=== PATIENT | male | born 1950 | race Caucasian/White ===

== ENCOUNTER 2023-09-19 10:42 | Emergency (ER) | payer BC, SELFPAY ==
[2023-09-19 10:46] VITALS: BP 148/81
--- NOTE | 2023-09-19 11:17 | ED.GENMED ---
History of Present Illness
<DARIA Fraire - Last Filed: 09/20/23 07:24>
General
Chief Complaint: Breathing Problem
Source: patient
Exam Limitations: none
Time Seen by Provider: 09/19/23 11:09
Nursing documentation reviewed up to this point in time: agreed with
Travel History
Have you had any contact with someone who has COVID-19?: No
Do you have any symptoms of coronavirus? Fever > 100 degrees, chills, cough, shortness of breath, sore throat, loss of taste or smell, muscle aches, or headache?: No
History of Present Illness
History of Present Illness:
73-year-old male presents today for evaluation. Patient reports he was diagnosed with COVID in July but since then has had progressive worsening cough. He has been to urgent care last week and was given steroids and an inhaler. He completed
that. He complains of worsening cough, wheezing. He does feel slightly short of breath with talking. He also complains of swelling to his glands which she has noticed for the past several days . He reports that he wakes up in the morning with
swelling of his glands under his neck but today reports he noticed swelling to bilateral facial glands .
He denies any associated fever chills nausea vomiting.
Past History
<DARIA Fraire - Last Filed: 09/20/23 07:24>
Past History
ED Past Medical History: Other (Hypertension, borderline hyperlipidemia)
Social History
Tobacco: Non-smoker
Alcohol: Daily
Family History
Family History: Other (father with atrial fibrillation)
Review of Systems
<DARIA Fraire - Last Filed: 09/20/23 07:24>
Review of Systems
Allergies reviewed?: Yes
All Other Systems: ROS reviewed and negative except as documented in HPI and ROS
Constitutional: Reports no symptoms; Denies fever, fatigue or chills
EENT: Reports no symptoms
Respiratory: Reports cough and trouble breathing
Cardiac: Reports no symptoms
ABD/GI: Reports no symptoms
: Reports no symptoms
Musculoskeletal: Reports no symptoms
Skin: Reports no symptoms
Neurological: Reports no symptoms
Psychiatric: Reports no symptoms
Phy Exam
<DARIA Fraire - Last Filed: 09/20/23 07:24>
General Physical Exam
General Presentation: no apparent distress
General age: appears stated age
General Skin: warm and dry
General Habitus: normal
General Mental: alert
General Hydration: appears well hydrated
Cardiovascular Exam
Cardiovascular Exam: regular rate/rhythm, no murmur and normal peripheral pulses
Pulmonary Exam
Pulmonary Exam: no respiratory distress and other (+ wheezing b/l ; crackles left base )
Neurological Exam
Neurological Exam: alert and oriented x3
Musculoskeletal Exam
Musculoskeletal Exam: full ROM
Skin Exam
Skin Exam: normal color and warm/dry
Psychiatric Exam
Psychiatric Exam: normal mood/affect
Scores
<DARIA Fraire - Last Filed: 09/20/23 07:24>
Heart Failure Risk
Heart Failure Risk Score: Not Applicable
Course
<DARIA Fraire - Last Filed: 09/20/23 07:24>
Orders/Labs/Results
Orders:
Orders
09/19/23 11:30
Cardiac Monitoring- Treatment ONCE
IV Insert/Care/Rem.- Treatment PRN
0.9% Sodium Chloride 1000 ml [Nss] 1,000 ml IV BOLUS
Albuterol Sulfate [Ventolin Nebules] 7.5 mg INH R NOW STA
Ipratropium Nebs [Atrovent Nebules] 1 mg INH R NOW STA
09/19/23 11:32
Dexamethasone Sod Phosphate [Decadron] 10 mg IV NOW STA
09/19/23 11:52
Complete Blood Count/With Diff Urgent
Comprehensive Metabolic Panel Urgent
09/19/23 13:50
CT Chest Pe Study Urgent
Comment:
Reason For Exam: sob
09/19/23 13:51
CT Neck With Iv Contrast Urgent
Comment:
Reason For Exam: anterior neck swelling
Abnormal Lab Results
09/19/23
11:52
WBC 12.4 H 10^3/uL
(4.8-10.8)
RBC 4.31 L 10^6/uL
(4.70-6.10)
MCH 32.3 H pg
(27.0-31.0)
Abs Immat Gran (auto) 0.4 H 10^3/uL
(0-0.05)
Absolute Neuts (auto) 8.6 H 10^3/uL
(1.4-6.5)
Absolute Monos (auto) 1.3 H 10^3/uL
(0.1-0.6)
Immature Gran % 3.4 H %
(0-0.5)
Lymphocytes % 16.4 L %
(20.5-51.1)
Monocytes % 10.3 H %
(1.7-9.3)
BUN 34 H mg/dl
(9-20)
Creatinine 1.4 H mg/dL
(0.7-1.3)
09/19/23 11:52
09/19/23 11:52
Vital Signs
Initial and Last Documented VS:
Initial Vital Signs
Temp Pulse Resp BP Pulse Ox
98.2 F 90 16 148/81 97
09/19/23 10:46 09/19/23 10:46 09/19/23 10:46 09/19/23 10:46 09/19/23 10:46
Last Documented Vital Signs
Temp Pulse Resp BP Pulse Ox
98.1 F 80 16 124/66 94
09/19/23 16:33 09/19/23 16:33 09/19/23 16:33 09/19/23 16:33 09/19/23 16:33
Communications Engineering Technician consulted with Physician
Communications Engineering Technician consulted with physician?: Yes
Name of Physician Consulted: Lesley
<Dayo Sutton, DO - Last Filed: 09/19/23 15:25>
Orders/Labs/Results
Orders:
Orders
09/19/23 11:30
Cardiac Monitoring- Treatment ONCE
IV Insert/Care/Rem.- Treatment PRN
0.9% Sodium Chloride 1000 ml [Nss] 1,000 ml IV BOLUS
Albuterol Sulfate [Ventolin Nebules] 7.5 mg INH R NOW STA
Ipratropium Nebs [Atrovent Nebules] 1 mg INH R NOW STA
09/19/23 11:32
Dexamethasone Sod Phosphate [Decadron] 10 mg IV NOW STA
09/19/23 11:52
Complete Blood Count/With Diff Urgent
Comprehensive Metabolic Panel Urgent
09/19/23 13:50
CT Chest Pe Study Urgent
Comment:
Reason For Exam: sob
09/19/23 13:51
CT Neck With Iv Contrast Urgent
Comment:
Reason For Exam: anterior neck swelling
Abnormal Lab Results
09/19/23
11:52
WBC 12.4 H 10^3/uL
(4.8-10.8)
RBC 4.31 L 10^6/uL
(4.70-6.10)
MCH 32.3 H pg
(27.0-31.0)
Abs Immat Gran (auto) 0.4 H 10^3/uL
(0-0.05)
Absolute Neuts (auto) 8.6 H 10^3/uL
(1.4-6.5)
Absolute Monos (auto) 1.3 H 10^3/uL
(0.1-0.6)
Immature Gran % 3.4 H %
(0-0.5)
Lymphocytes % 16.4 L %
(20.5-51.1)
Monocytes % 10.3 H %
(1.7-9.3)
BUN 34 H mg/dl
(9-20)
Creatinine 1.4 H mg/dL
(0.7-1.3)
09/19/23 11:52
09/19/23 11:52
Vital Signs
Initial and Last Documented VS:
Initial Vital Signs
Temp Pulse Resp BP Pulse Ox
98.2 F 90 16 148/81 97
09/19/23 10:46 09/19/23 10:46 09/19/23 10:46 09/19/23 10:46 09/19/23 10:46
Last Documented Vital Signs
Temp Pulse Resp BP Pulse Ox
98.1 F 80 16 124/66 94
09/19/23 16:33 09/19/23 16:33 09/19/23 16:33 09/19/23 16:33 09/19/23 16:33
<DARIA Fraire - Last Filed: 09/20/23 07:24>
MDM/Problems Addressed
Differential Diagnosis Includes:
not limited to: Bronchitis, pneumonia, PE, viral syndrome
MDM/Problems Addressed:
Patient presents to the ER complaining of a cough that he has had since having COVID. He recently completed 7-day course of steroids and has an albuterol inhaler given by urgent care.
Patient reports he is not able to sleep because of the cough. He does feel short of breath with coughing fits. He complains of swelling glands.
Patient presents awake alert no acute distress not hypoxic however with audible wet sounding cough. He does have mild wheezing. Patient was given an hour-long neb and does feel that after neb he was able to cough and loosen things up. Is also
given Decadron IV. With swelling glands as well as continued worsening cough and negative chest x-ray CAT scan was done of the chest which was negative for PE. Does however show diffuse mild bronchial wall thickening and possible small focal
mucoid impaction. Patient will need pulmonary for outpatient follow-up. Incidentally there is also an indeterminate 4 mm focal opacity right lower lobe likely benign however I did review with patient the importance of outpatient follow-up with
family doctor as well as pulmonary. In addition there is a 9 mm calcific opacity of the mid esophagus which is also reviewed recommended outpatient follow-up. CT neck negative for acute findings. Patient feels well enough to go home he is in no
acute distress as reviewed with ED physician will DC on albuterol nebulizer along with 10-day course of steroid however I discussed with patient importance of following up with pulmonary to call tomorrow for an appointment soon as possible and to
return if any worsening of symptoms
<DARIA Fraire - Last Filed: 09/20/23 07:24>
*Radiology
Radiology exam reviewed: radiology read reviewed
*Pulse Oximetry
Patient hypoxic: no
*Critical Care Note
Total Time (30-74mins, 75-104mins- exclusive of procedures): Not Applicable
ED Attending Note
<DARIA Fraire - Last Filed: 09/20/23 07:24>
-
Portions of this chart may have been created with voice recognition software.� Occasional wrong word or��sound alike� substitutions may have occurred due to the inherent limitations of voice recognition software.
<Dayo Sutton DO - Last Filed: 09/19/23 15:25>
ED Attending Note
Patient seen and examined by attending physician: Yes
I performed the substantive portion of visit, reviewed & personally made and approve the management plan that is documented in note by myself or ALEJANDRA.: Yes
ED Attending Note:
Patient is a 73-year-old male sent from urgent care for continued shortness of breath and swelling of the nodes in his neck for the past 4 days. Patient had COVID in the beginning year and has been having difficulty since then with cough, wheezing.
Patient denies history of asthma. Patient is a non-smoker. Patient denies any weight loss. Patient denies any voice change, neck pain or difficulty swallowing. Patient denies GI symptoms. Patient continues to have a cough that he describes as
wheezing and occasionally productive. This been going on for some weeks. Patient did have a weeks worth of prednisone. On physical exam patient does not appear to be in any distress. Neck is supple neck vein distention. However on palpation of
the patient appears to have enlarged submandibular and anterior cervical adenopathy as well as parotid swelling and enlargement. All this is rather nontender. Patient's oropharynx is clear. Sublingual is clear. Heart is regular. Lung sounds are
coarse with scattered occasional wheeze. CT of the neck and chest were done which essentially showed bronchial inflammation. Patient will be given 10 to 14 days worth of steroids along with a nebulizer and referral to pulmonary. This appears to
be reactive airway disease probably initiated by COVID
Discharge Plan
Departure
Patient Disposition: Home (Routine Discharge)
Date of Disposition: 09/19/23
Time of Disposition: 16:00
Patient with high blood pressure during this ER visit?: Yes
Condition: Fair
Covid-19: Not Applicable
Discharge Problem:
Bronchitis, Acute bronchitis
Instructions: Acute Bronchitis, Adult (DC), Shortness of Breath (Dyspnea) (DC), BLOOD PRESSURE
Prescriptions:
New
albuterol sulfate 2.5 mg /3 mL (0.083 %) solution for nebulization
2.5 mg inhalation Q6H PRN (Reason: shortness of breath or wheezing) Qty: 90 0RF
prednisone 10 mg Tablet
See Rx Instructions .ROUTE .COMPLEX Qty: 30 0RF
Rx Instructions:
Take By Mouth:
40 mg daily x3 days, 30 mg daily x3 days,
20 mg daily x3 days, 10 mg daily x3 days.
benzonatate 200 mg capsule
200 mg PO TID PRN (Reason: Cough) Qty: 10 0RF
No Action
lisinopril 30 MG tablet
30 mg PO DAILY
Referrals:
Brendon Lynch MD [Family Provider] -
Christian Wei MD [Active] -
Activity Restrictions/Additional Instructions:
discussed a prescription for albuterol was sent to pharmacy . Use as directed with nebulizer. Also as directed a prescription for prednisone was sent to your pharmacy along with a cough medicine.
Stay well-hydrated. As discussed is important that you follow-up with pulmonary for further evaluation. Please call the office tomorrow to be seen as soon as possible please follow-up as discussed for other additional including 4 mm opacity in the
right lower lobe and 9 mm opacity along your mid esophagus. Please follow-up also with family doctor the next several days. Return if any worsening of symptoms if difficulty breathing fevers or any further concerns.
Interventions
Interventions:
*Risk Screen - Suicide Last Done: 09/19/23 10:46
*General Assessment Last Done: 09/19/23 10:46
*Neglect/Abuse Screening Last Done: 09/19/23 10:46
ED- Fall Risk Assessment Last Done: 09/19/23 11:28
*ED COVID-19 Vaccine History Last Done: 09/19/23 11:28
*Nursing Disposition Last Done: 09/19/23 16:33
ED- Cardiac Assessment Last Done: 09/19/23 16:28
ED- Pulmonary Assessment Last Done: 09/19/23 11:29
Discharge Date and Time
Discharge Date/Time: 09/19/23 16:34
[2023-09-19 11:28] VITALS: BMI 31.0
[2023-09-19 11:49] VITALS: BP 120/73
[2023-09-19] MEDS: VENTOLIN NEBULES 7.5 MG INH (11:53)
[2023-09-19] MEDS: DECADRON 10 MG IV (11:53)
[2023-09-19] MEDS: ATROVENT NEBULES 1 MG INH (11:54)
[2023-09-19] MEDS: NSS 1000 IV (11:56)
[2023-09-19 12:00] VITALS: BP 128/80
[2023-09-19 12:15] LABS: % Basophils 0.3 % (0-2); % Eosinophils 0.2 % (0-6); % Immature Granulocytes 3.4 % (0-0.5); % Lymphocytes 16.4 % (20.5-51.1); % Monocytes 10.3 % (1.7-9.3); % Neutrophils 69.4 % (42.2-75.2); Absolute Immature Granulocytes 0.4 10^3/uL (0-0.05); Absolute Monocytes 1.3 10^3/uL (0.1-0.6); Absolute Neutrophils 8.6 10^3/uL (1.4-6.5); Hematocrit 39.3 % (39.0-52.0); Hemoglobin 13.9 g/dL (13.0-18.0); Mean Corp Hgb Conc. 35.4 g/dL (33.0-37.0); Mean Corpuscular Hgb 32.3 pg (27.0-31.0); Mean Corpuscular Volume 91.2 fL (80.0-94.0); Mean Platelet Volume 8.9 fL (7.4-10.4); Nucleated Red Blood Cells % 0 % (-); Platelet Count 304 10^3/uL (130-400); Red Blood Cell Count 4.31 10^6/uL (4.70-6.10); Red Cell Dist. Width 12.7 % (11.5-14.5); White Blood Cell Count 12.4 10^3/uL (4.8-10.8)
[2023-09-19 12:29] LABS: ALT (SGPT) 25 U/L (0-50); AST (SGOT) 25 U/L (17-59); Albumin 3.5 g/dl (3.5-5.0); Alkaline Phosphatase 83 U/L (38-126); Blood Urea Nitrogen 34 mg/dl (9-20); Calcium 9.6 mg/dl (8.4-10.2); Carbon Dioxide 27 mmol/L (22-30); Chloride 100 mmol/L (98-107); Estimated Creatinine Clearance 49 ml/min; Glucose 96 mg/dl (70-99); Potassium 4.2 mmol/L (3.5-5.1); Sodium 136 mmol/L (135-145); Total Bilirubin 0.6 mg/dl (0.2-1.3); Total Protein 7.4 g/dl (6.3-8.2); eGFR 52.74
[2023-09-19 13:00] VITALS: BP 132/69
[2023-09-19 16:33] VITALS: BP 124/66
== END 2023-09-19 16:34 | disposition home or self-care (01) ==
LOC: EMR 10:42
PROVIDERS: Nurse Practitioner; EMERGENCY PHYSICIAN Emergency Medicine; FAMILY PHYSICIAN Family Medicine
DX: J20.9 Acute bronchitis, unspecified (principal); I10 Essential (primary) hypertension; E78.5 Hyperlipidemia, unspecified
CPT/HCPCS: 99284; 94640; 96374; 96361; 70491; 71275; 80053; 85025; Q9967

== ENCOUNTER → 2024-03-27 08:27 | Outpatient (REF) | payer BC, SELFPAY | LOC: RAD 08:27 | PROVIDERS: ATTENDING PHYSICIAN Internal Medicine Critical Care Medicine | DX: R91.1 Solitary pulmonary nodule (principal) | CPT/HCPCS: 71250 ==

== ENCOUNTER → 2025-03-11 15:10 | Outpatient (REF) | payer BC, SELFPAY | LOC: HWRAD 15:10 | PROVIDERS: ATTENDING PHYSICIAN Chiropractor; FAMILY PHYSICIAN Student in an Organized Health Care Education/Training Program | DX: M99.04 Segmental and somatic dysfunction of sacral region (principal); M62.40 Contracture of muscle, unspecified site; M54.40 Lumbago with sciatica, unspecified side | CPT/HCPCS: 72070; 72110 ==